=== PATIENT | female | born 1970 | race Caucasian/White ===

== ENCOUNTER → 2020-10-29 15:50 | Outpatient (CLI) | payer OTHER, SELFPAY ==
--- NOTE | ~2020-10-29 | XR_ITS ---
EXAMINATION: XR lumbar spine 2-3V DATE: 10/29/2020 16:31 INDICATION: Low back pain TECHNIQUE: Anteroposterior and lateral views of the lumbar spine, and cone-down lateral view of the l umbosacral junction were obtained. COMPARISON: None. FINDINGS: There are six lumbar type vertebra. Bone alignment is normal. There is no fracture. Mild fa cet osteoarthritis is noted in the lower lumbar spine. The vertebral body heights are normal. The int ervertebral disc spaces are maintained. Phleboliths are noted in the pelvis. IMPRESSION: 1. Mild lumbar spondylosis without acute findings. Reviewed, dictated and finalized at location A.
--- NOTE | ~2020-10-29 | XR_ITS ---
EXAMINATION:XR_CERV2-3V_CR DATE: 10/29/2020 16:31 INDICATION: Neck pain TECHNIQUE: AP, lateral, lateral swimmers and odontoid views of the cervical spine are provided. COMPARISON: None FINDINGS: Alignment is normal. The odontoid is intact. No fracture is identified. The vertebral body heights are maintained. There is severe loss of intervertebral disc space height at C6-7. The odontoi d is intact. There is severe facet and uncovertebral joint osteoarthritis throughout the cervical spi ne. Prevertebral soft tissues are normal. IMPRESSION: 1. Severe cervical spondylosis at C6-7 without acute findings. Reviewed, dictated and finalized at location A.
== END ==
DX: R03.1 Nonspecific low blood-pressure reading (principal); M47.816 Spondylosis without myelopathy or radiculopathy, lumbar region; M47.812 Spondylosis without myelopathy or radiculopathy, cervical region
CPT/HCPCS: 72040; 72100

== ENCOUNTER 2023-07-12 16:03 | Emergency (ER) | payer OTHER, SELFPAY ==
[2023-07-12 16:13] VITALS: BP 123/76; PULSE 86; RESP 16; TEMP 36.9; O2SAT 98
[2023-07-12 16:17] VITALS: BP 123/76; PULSE 86; RESP 16; TEMP 36.9; O2SAT 98
--- NOTE | 2023-07-12 16:33 | ED.URI ---
HPI - URI/Sore Throat General Chief Complaint: Upper Respiratory Infection Stated Complaint: Sore Throat Time Seen by Provider: 07/12/23 16:37 Source: patient, RN notes reviewed and old records reviewed Mode of arrival: ambulatory Limitations: no limitations History of Present Illness HPI Narrative: 53 year old female who presents to [facility] with complaints of sore throat, post nasal drainage with some noted hoarseness for the past 2 days. Patient reports that she has been taking Tylenol and an antihistamine for her symptoms without improvement. Patient denies any cough or any shortness of breath, denies any known fevers, states no chills, sweats, or any myalgia. Patient reports no known sick contacts. Patient reports some sinus problems in the past and has used nasal sprays. MD elicited complaint: sore throat, rhinorrhea and nasal congestion Pertinent past history: seasonal allergies and other (sinus problems) Onset (ago): day(s) (2) Consistency: constant Pain scale (0-10): 8 Able to tolerate fluids by mouth: Yes Exacerbating factors: swallowing Treatments prior to arrival: acetaminophen and other (antihistamines) Related Data Home Medications Medication Instructions Recorded Confirmed flecainide 100 mg tablet 50 mg PO Q12H 06/18/21 07/12/23 B 12 1 drp PO DAILY 07/12/23 07/12/23 bupropion HCl 300 mg 24 hr tablet, 300 mg PO DAILY 07/12/23 07/12/23 extended release calcium-vitamin D3-vitamin K 1 drp PO DAILY 07/12/23 07/12/23 paroxetine HCl 40 mg tablet 40 mg PO DAILY 07/12/23 07/12/23 Allergies Allergy/AdvReac Type Severity Reaction Status Date / Time biotin Allergy Intermediate Confusion Verified 07/12/23 16:13 Review of Systems Review of Systems: CONSTITUTIONAL: Denies malaise, chills, sweats, or fever. EYES: Denies visual changes, redness, or discharge. ENT: Reports rhinorrhea, congestion,no sinus pain, no otalgia and positive for sore throat.hoarseness CARDIOVASCULAR: Denies chest pain, palpitations, or edema. RESPIRATORY: Reports cough.? Denies dyspnea. GASTROINTESTINAL: Denies abdominal pain, nausea, vomiting, diarrhea SKIN: Denies rash or itching. MUSCULOSKELETAL: Denies myalgia. NEUROLOGIC: Denies headache. All systems reviewed & are unremarkable except as noted in HPI and below PMFSH Past Medical History Medical History (Updated 07/13/23 @ 10:08 by Carmen Vogel NP) History of sinus problem Palpitations Surgical History Surgical History (Updated 07/13/23 @ 10:04 by Carmen Vogel NP) Hx of removal of ovary Family History Family History Father Diabetes mellitus Hypertension Heart disease Thyroid disorder Mother Asthma Cancer Sibling Depression Thyroid disorder Grandparent Depression Cancer Social History Social History Smoking status: Never smoker Second hand tobacco smoke exposure: No Alcohol intake: current Substance use: never Substance use type: does not use Comments At time of signature, agree with nursing past medical, surgical, social and family history. There is no relevant family history pertinent to the presenting complaint Exam Narrative: GENERAL: Well-appearing, well-nourished, and in no acute distress. HEAD: Normocephalic EYES: PERRLA, conjunctivae clear ENT: Nares clear, turbinates edematous and erythematous, clear discharge. Mucous membranes moist. TM pearly suh with dull light reflex bilaterally; no tragal tenderness. Oropharynx erythematous without lesions. Tonsils not enlarged and without exudate, no drooling, positive for hoarseness, no trismus, uvula midline.post nasal drainage noted NECK: Supple. No lymphadenopathy CHEST: Clear to auscultation, breath sounds equal. No wheezing, rhonchi, rales, or stridor. No respiratory distress, speaks in full sentences.no cough noted SAO2 98% on room
== END 2023-07-12 16:50 | disposition home or self-care (01) ==
PROVIDERS: Emergency Provider Registered Nurse; PCP Internal Medicine
DX: J06.9 Acute upper respiratory infection, unspecified (principal); J02.9 Acute pharyngitis, unspecified; Z79.899 Other long term (current) drug therapy
CPT/HCPCS: 87081; 87880; 99213; G0463

== ENCOUNTER 2024-02-08 14:21 | Emergency (ER) | payer OTHER, SELFPAY ==
[2024-02-08 14:28] VITALS: BP 110/72; PULSE 84; RESP 16; TEMP 36.6; O2SAT 100
--- NOTE | 2024-02-08 14:47 | ED.GENADULT ---
HPI - General Adult General Chief complaint: Upper Respiratory Infection Stated complaint: Cough Time Seen by Provider: 02/08/24 14:48 Source: patient, RN notes reviewed and old records reviewed Mode of arrival: ambulatory Limitations: no limitations History of Present Illness HPI narrative: 53-year-old female to [facility] for nonproductive that is worse at night for 1 month. Patient also endorsing postnasal drainage, uncontrollable coughing fits, and sore throat from coughing. Patient denies fever, headache, ear pain, chest pain, shortness of breath, pertinent medical history. Patient has not attempted to treat it at home. Patient states that she travels a lot for work and has not had time to be seen by her primary care provider. Patient able to tolerate fluids by mouth. Respirations even and nonlabored. Patient able to speak in full sentences without difficulty. Patient in no acute distress. Related Data Home Medications Medication Instructions Recorded Confirmed flecainide 100 mg tablet 50 mg PO Q12H 06/18/21 02/08/24 bupropion HCl 300 mg 24 hr tablet, 300 mg PO DAILY 07/12/23 02/08/24 extended release estradiol 1 mg tablet 1 mg PO DIRECTED 02/08/24 02/08/24 progesterone micronized 100 mg 100 mg PO DAILY 02/08/24 02/08/24 capsule Allergies Allergy/AdvReac Type Severity Reaction Status Date / Time biotin Allergy Intermediate Confusion Verified 02/08/24 14:54 Review of Systems Review of Systems: All systems reviewed & are unremarkable except as noted in HPI and below Constitutional: Constitutional: Reports no additional constitutional complaints Eyes: Eyes: Reports no additional eye complaints ENT: Reports system reviewed and no additional complaints, except as documented Cardiovascular: Cardiovascular: Reports no additional cardiovascular complaints, Denies chest pain and Denies dyspnea Respiratory: Respiratory: Reports no additional respiratory complaints, Reports cough and Denies dyspnea Musculoskeletal: Musculoskeletal: Reports no additional musculoskeletal complaints Neurologic: Reports system reviewed and no additional complaints, except as documented Psychiatric: Psychiatric: Reports no additional psychiatric complaints PMFSH Past Medical History Medical History History of sinus problem Palpitations Surgical History Surgical History Hx of removal of ovary Family History Family History Father Diabetes mellitus Hypertension Heart disease Thyroid disorder Mother Asthma Cancer Sibling Depression Thyroid disorder Grandparent Depression Cancer Social History Social History Smoking status: Never smoker Second hand tobacco smoke exposure: No Alcohol intake: current Substance use: never Substance use type: does not use Comments At the time of my signature, I reviewed and agree with the nursing past medical, surgical, social, and family history. There is no relevant family history pertinent to the patient complaint. Exam Const: General: cooperative, comfortable, no acute distress, alert, tired appearing and well nourished Nutritional Appearance: well nourished Orientation/consciousness: patient oriented x3 Limitations: no limitations HENMT: Head: normal to inspection Ears: external ears normal Face/Nose/Sinus: Normal external nose present, Abnormal mucous membranes and turbinates present erythematous, normal facial exam, No erythema and No edema Face and sinus: normal facial exam, no erythema and no edema Mouth: Yes Normal oral and palatal mucosa present Throat: uvula midline, abnormal tonsil, posterior oropharynx abnormal erythema, postnasal drainage and tonsils absent Eyes: General: appearance normal, both e
== END 2024-02-08 15:23 | disposition home or self-care (01) ==
PROVIDERS: Emergency Provider Nurse Practitioner Family; PCP Internal Medicine
DX: R05.9 Cough, unspecified (principal)
CPT/HCPCS: 99213; G0463

== ENCOUNTER 2024-02-11 10:47 | Outpatient (CLI) | payer OTHER, SELFPAY ==
--- NOTE | ~2024-02-11 | XR_ITS ---
3 VIEWS LUMBAR SPINE Ordering provider: Jennifer Cox History: . Low back pain . Comparison: None. FINDINGS: VERTEBRAL BODIES:Dextroscoliosis. No visible fracture or subluxation. DISK SPACES: Narrowing of the disc L2-L3. SOFT TISSUES: Normal. IMPRESSION: No acute osseous abnormality lumbar spine. Reviewed, dictated and finalized at location A.
== END 2024-02-11 10:48 ==
PROVIDERS: PCP Internal Medicine
DX: M54.50 Low back pain, unspecified (principal)
CPT/HCPCS: 72100